=== PATIENT | female | born 1940 | race Caucasian/White ===

== ENCOUNTER 2016-10-24 12:17 | Day surgery (SDC) | payer MEDICARE, OTHER ==
[~2016-10-24] VITALS: Ht 154.9 cm; Wt 83.0 kg
[~2016-10-24 12:17] MED LIST: 0.9% Sodium Chloride 1,000 ML IV SCH; ACET325T51 PO; BUPR100T15 PO; CYAN1TAB42 SL; FLUT9.9S NS; GABA600T2 PO; LISI1TAB7 PO; MELO7.5O PO; PANT40TA2 PO; Sodium Chloride LOK Flush 10 mL Syringe IV PRN; fentaNYL-PF 50 mCg/mL 2 mL Inj IVPUSH PRN
[2016-10-24 12:48] VITALS: BP 130/76; PULSE 60; RESP 16; O2SAT 96
[2016-10-24 14:28] VITALS: BP 129/73; PULSE 64; RESP 16; O2SAT 96
[2016-10-24 14:38] VITALS: BP 107/52; PULSE 68; RESP 16; O2SAT 97
[2016-10-24 14:47] VITALS: BP 131/63; PULSE 77; RESP 16; O2SAT 91
--- NOTE | 2016-10-24 18:19 | ENDO ---
[address] [address] ENDOSCOPY PROCEDURE PATIENT: WINSOME LEWIS : 1940 MR#: [id number] ADMIT: 10/24/2016 JOB ID: [id number] PRIMARY PROVIDER: GLEN Hansen. PROCEDURE: Colonoscopy with cold forceps polypectomy. INDICATIONS: A 76-year-old female with a personal history of colon cancer. She recently had hemorrhoidal banding. EQUIPMENT: PCF H 180 AL. SEDATION: 4 mg Versed and 100 mcg fentanyl. COMPLICATIONS: None identified. BOWEL PREPARATION: Fair at best. Copious amounts of irrigation and suction were required for an acceptable examination. PROCEDURE IN DETAIL: After the risks and benefits were explained, written and verbal informed consent was obtained. The patient was brought into the endoscopy suite and placed into the left lateral decubitus position. Sedation was achieved as above. A digital rectal examination accomplished. No external hemorrhoids appreciated. Mild internal hemorrhoids could be palpated. No mass lesions appreciated. The scope was introduced into the rectum and advanced under direct visualization to the cecum as identified by the appendiceal orifice and ileocecal valve. The scope was slowly withdrawn to carefully examine the mucosa for any defects or lesions. Retroflexed views were obtained at the outset of our exam today and demonstrated some mucosal ulceration probably in the region of prior banding. Ultimately, the colon was decompressed, the scope removed from the patient who tolerated the procedure well. At the outset of today's procedure, Dr. Castillo was available and was present for inspection of the anorectum and both direct and retroflexed views at the beginning of the procedure. FINDINGS: Prep conditions as above. There were certainly some areas where small polyps could have been overlooked. In the left colon there was a small diminutive perhaps 3-4 mm polyp removed with cold forceps. The colorectal anastomosis appeared widely patent with some residual or retained suture material. No evidence of polypoid mucosa, no stenosis, no concerning features were noted. Retroflexed views as described above disclosed some inflammation approaching and crossing the dentate line. Multiple photographs were taken. ENDOSCOPIC DIAGNOSES: 1. Patent rectal coloanastomosis. 2. Colon polyp. 3. Persistent anorectal ulceration with mild internal hemorrhoids subsequent to more recent banding. RECOMMENDATIONS: 1. Await histopathology. 2. Based on what will likely be an adenoma, repeat colonoscopy in one year with an extra day of liquids and MiraLAX prior to the official prep. 3. The patient is encouraged to trial 0.3% nifedipine ointment applied to the inside of the anal canal in a pea-sized lump twice per day for the next four weeks. 4. Follow up on hemorrhoids and internal fissuring/ulceration with Dr. Castillo in the short term.
--- NOTE | 2016-10-26 11:43 | PATH ---
SURGICAL PATHOLOGY Attending Physician:Jaleel Kim CASE STATUS: Signed Out PATIENT NAME: WINSOME LEWIS PID: [id number] : 1940 DATE COLLECTED:10/24/2016 00:00 SPECIMEN: Colon, Biopsy CLINICAL HISTORY: A: LEFT COLON POLYP FINAL DIAGNOSIS: Left Colon Polyp: Tubular adenoma. ICD10: D12.4 GROSS DESCRIPTION: The specimen is received in one formalin filled container labeled with the patient's name, sublabeled "left colon polyp" and consists of a 0.3 x 0.3 x 0.2 CM portion of tissue which is entirely submitted in one cassette. 10/25/2016 [facility] ICD-9 CODES: CPT CODES: 1: 73826 Electronically Signed Out Addy Landa MD [facility] Pathology [facility] [address], [place] [address] Technical component performed at [facility], [facility] [address], [place], [address]
== END 2016-10-24 23:59 | disposition home or self-care (01) ==
LOC: END 12:17
PROVIDERS: ATTEND Internal Medicine Gastroenterology
DX: D12.4 Benign neoplasm of descending colon (principal); K63.89 Other specified diseases of intestine; K62.6 Ulcer of anus and rectum; Z86.010 Personal history of colon polyps; Z79.899 Other long term (current) drug therapy; Z87.891 Personal history of nicotine dependence
CPT/HCPCS: 45380; 88305; 99153; G0500; J2250; J7030

== ENCOUNTER 2017-01-31 13:07 | Emergency (ER) | payer MEDICARE, OTHER ==
[~2017-01-31] VITALS: Ht 154.9 cm; Wt 82.7 kg
[~2017-01-31 13:07] MED LIST changes: -0.9% Sodium Chloride 1,000 ML IV SCH; -ACET325T51 PO; -Sodium Chloride LOK Flush 10 mL Syringe IV PRN; -fentaNYL-PF 50 mCg/mL 2 mL Inj IVPUSH PRN
[2017-01-31 13:11] VITALS: BP 102/62; PULSE 65; RESP 18; O2SAT 98
[2017-01-31 14:43] LABS: BASOPHILS % (AUTO) 0.6 % (0-3); EOSINOPHILS % (AUTO) 0.4 % (0-5); MONOCYTES % (AUTO) 15.8 % (4-12); Mean Corpuscular Hemoglobin 23.8 pg (27.0-35.0); Mean Corpuscular Volume 77.3 fL (81-100); NEUTROPHILS % (AUTO) 57.2 % (40-74); Platelet Count 321 bil/L (150-400)
--- NOTE | 2017-01-31 14:51 | ED.REPORT ---
HPI-Extremity Problem Lower Date of Service January 31, 2017 ED Provider: Ofelia Szymanski MD This 76 year old female presents for lower extremities swelling. Patient has been seen by Dr. Cohn earlier today who sent her to [facility] Emergency Department. Patient reports gradual bilateral lower legs swelling that started 2 weeks ago. There is no reported injury or trauma. Associated symptoms include decreased mobility and tightness in legs. Pertinent negatives include difficulty initiating sleep and nocturnal awakening. Patient reports having an ultrasound done 2 days ago to rule out DVT in the right leg which was negative. Patient denies history of congestive heart failure. She tried to rest and elevate legs, but reports no relief. She denies chest pain, irregular heart palpitations, nausea, vomiting, diarrhea. She reports shortness of breath upon exertion. Patient also states she has been having altered bowel function for about 3 weeks now since she had a flu. She is having chronic diarrhea now and has about 12-15 loose, watery stool daily. Nursing Notes Stated Complaint: SHORTNESS OF BREATH, SWOLLEN LEGS Chief Complaint: Respiratory Complaints Allergies: Coded Allergies: Contrast Media (Verified Allergy, Severe, facial swelling and rash on body , 10/24/16) latex (Verified Allergy, Severe, RASH, 10/24/16) duloxetine (Verified Allergy, Unknown, "VIOLENTLY ILL", 10/24/16) amitriptyline (Verified Adverse Reaction, Severe, INCREASED AGITATION, ) amoxicillin (Verified Adverse Reaction, Severe, N&V, ANXIETY (PT HAS HAD PCN SINCE W/O PROBLEMS), 10/24/16) clavulanic acid (Verified Adverse Reaction, Severe, N&V, ANXIETY (PT HAS HAD PCN SINCE W/O PROBLEMS), 10/24/16) methocarbamol (Verified Adverse Reaction, Severe, AGITATION, INSOMNIA, ) Scheduled Bupropion (Bupropion) 100 Mg Tablet 200 MG PO BID Cyanocobalamin/Folic Acid (Vitamin T68-Cjlvt Acid Tablet) 1 Each Tablet 1 EACH SL DAILY Furosemide (Furosemide) 20 Mg Tab 20 MG PO DAILY Gabapentin (Gabapentin) 600 Mg Tablet 600 MG PO HS Lisinopril / HCTZ 10-12.5 mg (Lisinopril / HCTZ 10-12.5 mg) 1 Each Tablet 1 EACH PO DAILY Meloxicam (Meloxicam) 7.5 Mg/5 Ml Oral.susp 7.5 MG PO DAILY Pantoprazole DR (Protonix) 40 Mg Tablet.dr 40 MG PO BID Miscellaneous Medications Fluticasone Propionate (Flonase Allergy Relief) 50 Mcg/Actuation [place].susp 9.9 ML NS General Time Seen by MD: 13:38 Transferred From: Private physician office (Dr. Cohn) Chief Complaint Other (Bilateral lower extremity edema) Hx Obtained From: Patient Arrived By: Walk-in Onset Occurred: More than a week ago... (2 weeks) Quality: Fullness Severity: Current: Mild Past Medical History Past Medical History Notes: Gastroenteritis Chronic diarrhea secondary to colon cancer status post surgery 2 Hypertension Esophageal reflux Depression with anxiety Acoustic neuroma Past Surgical History Colon cancer surgery 2 Acoustic neuroma removal Smoking History Former Smoker Social History Alcohol Use: Denies alcohol use Drug Use: Denies drug use Ambulatory Status Independent Review of Systems Review of Systems Note: A comprehensive review of systems has been conducted with the patient and was found to be negative except what is mentioned in the history of present illness Physical Exam Initial Vital Signs Vital Signs (First) Date Time Temp Pulse Resp B/P Pulse Ox O2 Delivery O2 Flow Rate FiO2 01/31/17 13:11 36.8 65 18 102/62 98 Room Air Initial VS: Reviewed General/Constitutional: Well-developed, Well-nourished Head / Eyes: Atraumatic, Normocephalic ENT: Mucous membranes moist, Conjunctiva normal, No scleral icterus Neck: Supple, Non-tender, Full range of motion Abdomen / GI: Soft, Non-tender, No distention Skin: Warm, Dry, No cyanosis (well perfused) Neurologic: Alert, Oriented Psychiatric: Mood/affect normal Respiratory / Chest: Breath sounds NL, No respiratory distress, No rales, No rhonchi, No wheezing Cardiovascular: Regular rhythm Heart Sounds / Murmur: Positive: Systolic murmur present.. (II/) Lower Ext Edema: Positive: Bilateral 3+, Pitting Interpretation & Diagnostics Lab Results Interpretation Result Diagram: 01/31/17 1430 01/31/17 1430 Test 01/31/17 14:30 White Blood Count 8.0th/mm3 (3.8-10.1) Red Blood Count 4.45mil/mm3 (3.90-5.20) Hemoglobin 10.6g/dL (12.0-15.6) Hematocrit 34.4% (35.0-46.0) Mean Corpuscular Volume 77.3fL (81-100) Mean Corpuscular Hemoglobin 23.8pg (27.0-35.0) Mean Corpuscular Hemoglobin Concent 30.8% (32.0-37.0) Red Cell Distribution Width 22.6% (12.3-15.4) Platelet Count 321bil/L (150-400) Neutrophils (%) (Auto) 57.2% (40-74) Lymphocytes (%) (Auto) 25.6% (14-46) Monocytes (%) (Auto) 15.8% (4-12) Eosinophils (%) (Auto) 0.4% (0-5) Basophils (%) (Auto) 0.6% (0-3) Sodium Level 141mEq/L (134-144) Potassium Level 3.7mEq/L (3.5-5.2) Chloride Level 107mEq/L (97-108) Carbon Dioxide Level 20mmol/L (18-29) Blood Urea Nitrogen 16mg/dL (8-27) Creatinine 0.95mg/dL (0.57-1.00) Estimat Glomerular Filtration Rate 82mL/min (>59) Glucose Level 94mg/dL (60-99) Calcium Level 7.7mg/dL (8.5-10.1) Magnesium Level 1.9mg/dL (1.6-2.6) Total Bilirubin 0.5mg/dL (0.0-1.2) Aspartate Amino Transf (AST/SGOT) 15U/L (0-50) Alanine Aminotransferase (ALT/SGPT) 14U/L (0-32) Alkaline Phosphatase 120U/L (25-165) Total Creatine Kinase 147U/L (21-215) Creatine Kinase MB 3.3ng/mL (0.0-5.3) Creatine Kinase MB % % (0.0-5.0) Troponin T < 0.010ug/L (0.0-0.011) Pro-B-Type Natriuretic Peptide 404.6pg/mL (0-738) Total Protein 4.8g/dL (6.4-8.4) Albumin 2.8g/dL (3.4-5.0) Hold Palmer Top Tube Received (Received) ECG Interpretation ECG Interpretation: Sinus rhythm, rate 64 Interpreted by: ED physician X-Ray Chest Interpretation Chest Xray Interpretation: No acute cardiopulmonary process Interpretation / Wet Read by: Interpret - Radiologist (Lionel Rosenberg M.D. on 01/31/2017 at 14:19 ) Re-Eval/Medical Decision Med Decision/Clinical Course 76 year old female presents with worsening bilateral lower extremity edema and dyspnea on exertion. She also c/o chronic diarrhea for which she is seeing Dr. Bruce. Initially we had a concern for CHF and/or viral cardiomyopathy, however, chest x -ray is unremarkable and lab work is within normal limits. Troponin, CK-MB, Pro -BNP are normal as well. We will administer lasix, 20 mg IV to help remove the fluid overload. We will also order a plain abdominal film to rule out fecal impaction. Discharge & Departure Impression: Primary Impression: Lower extremity edema Additional Impression: Chronic diarrhea Disposition: Home Patient Status: Stable Additional Instructions: Thank you for coming in today! Good news is you do not have heart, kidney or liver failure. All your labs are normal. We are sending you home with an additional medication to help you to get rid of lower extremity edema. Please take Furosemide, 20 mg orally daily in the morning for one week. Call your PCP and make an appointment within a week as you will need to check your kidney function and potassium.Take an additional potassium tablet daily while you are on Furosemide. We do not see an obstruction on abdominal film but you do have lots of old stool. Please follow Dr. Bruce's instructions and start saline Fleet's enema and Metamucil or Citrucel fiber supplementation. It will help you to evacuate old, hardened stool and hopefully will improve your diarrhea. Referrals: Thao Ceballos (PCP) EDSupervising Provider for APC: Ofelia Szymanski MD Attending Statement Patient seen and examined with Dr. Sewell today. No evidence of end organ failure. Increased lower extremity edema is likely due to oncotic pressure is result of her low albumin. Flat plate of the abdomen does suggest that there is a stool obstruction with lots of liquid stool leaking around this which is probably exacerbating her diarrhea. Recommended following Dr. Bruce's initial instructions with an enema. Agree with assessment and plan as above copies to: Thao Ceballos; Addy Bruce MD, Oksana S DO January 31, 2017 14:51 Ofelia Szymanski MD January 31, 2017 18:32
[2017-01-31 15:03] LABS: Magnesium 1.9 mg/dL (1.6-2.6)
[2017-01-31 15:08] LABS: TROPONIN T < 0.010 ug/L (0.0-0.011)
[2017-01-31 15:15] LABS: Creatine Kinase 147 U/L (21-215)
--- NOTE | 2017-01-31 15:25 | DRSVH ---
PROCEDURE: X-RAY CHEST ONE VIEW, PORTABLE ([id number]) INDICATIONS: edema TECHNIQUE: One view of the chest was acquired. COMPARISON: [facility], , CHEST 2VW, 12/05/2011, 11:04. FINDINGS: Surgical changes and devices: None. Lungs and pleura: No pleural effusions or pneumothorax. Lungs are clear. Mediastinum: Mediastinal contours appear normal. Heart size is normal. The there is aortic atheros clerosis. Bones and chest wall: No suspicious bony lesions. Bone mineralization is decreased. Overlying soft tissues appear unremarkable. IMPRESSION: Stable chest. No acute cardiopulmonary process is evident. Dictated by: Lionel Rosenberg M.D. on 01/31/2017 at 14:19 Approved by: Lionel Rosenberg M.D. on 01/31/2017 at 14:23
[2017-01-31] MEDS ORDERED: Furosemide 10 mg/mL 4 mL Inj IVPUSH ONE (15:40)
[2017-01-31] MEDS ORDERED: Furosemide 10 mg/mL 2 mL Inj IVPUSH ONE (15:45)
[2017-01-31 17:11] VITALS: BP 107/56; PULSE 71; O2SAT 98
--- NOTE | 2017-01-31 17:33 | DRSVH ---
PROCEDURE: X-RAY ABDOMEN, ONE VIEW ([id number]) INDICATIONS: diarrhea TECHNIQUE: One view of the abdomen acquired. COMPARISON: [facility], CT, CT CHEST ABD PELVIS W CON, 02/22/2016, 13:27. FINDINGS: Surgical changes and devices: Multiple radiodense sutures are present in the GE junction area. Vascul ar clips are scattered throughout the abdomen and several in the right iliac fossa as well. No change in the vascular clips is appreciated since the CT of 02/22/16 no other radiodense sutures. Bowel: Bowel gas pattern is normal. Soft tissues: No suspicious abdominal calcifications. Visualized solid organ contours appear normal in size. Bones: No suspicious bony lesions. IMPRESSION: No changes to indicate obstruction. Previous surgery in the abdomen. Calcified uterine fibroids are noted. Dictated by: Silvio Do M.D. on 01/31/2017 at 17:29 Approved by: Silvio Do M.D. on 01/31/2017 at 17:31
[2017-01-31 17:47] VITALS: BP 111/54; PULSE 84; O2SAT 97
[2017-01-31] MEDS ORDERED: FUR20 PO (17:51)
[2017-01-31 18:01] VITALS: BP 111/54; PULSE 84; O2SAT 97
== END 2017-01-31 18:02 | disposition home or self-care (01) ==
LOC: SED 13:07
DX: R60.0 Localized edema (principal); K52.9 Noninfective gastroenteritis and colitis, unspecified; R06.02 Shortness of breath; I10 Essential (primary) hypertension; K21.9 Gastro-esophageal reflux disease without esophagitis; F32.9 Major depressive disorder, single episode, unspecified; Z87.891 Personal history of nicotine dependence; Z88.1 Allergy status to other antibiotic agents; Z88.8 Allergy status to other drugs, medicaments and biological substances; Z91.040 Latex allergy status; Z91.041 Radiographic dye allergy status
CPT/HCPCS: 36415; 71010; 74000; 80053; 82550; 82553; 83735; 83880; 84484; 85025; 93005; 96374; 99285; J1940

== ENCOUNTER 2017-02-04 16:55 | Emergency (ER) | payer MEDICARE, OTHER ==
[~2017-02-04] VITALS: Ht 154.9 cm; Wt 85.0 kg
[~2017-02-04 16:55] MED LIST changes: +FUR20 PO
[2017-02-04 17:12] VITALS: BP 95/54; PULSE 67; RESP 18; O2SAT 97
--- NOTE | 2017-02-04 19:55 | ED.REPORT ---
HPI-Extremity Problem Lower Date of Service February 04, 2017 ED Provider: Dr. Yair Clemens D.O. A 76 year old female with a medical history including hypertension and acoustic neuroma s/p surgical removal presents to the ED with bilateral leg swelling onset two weeks ago. The patient denies other symptoms. She was seen in the [place] emergency department one week ago and received a negative DVT work- up. She was also seen in the [facility] ED four days ago where she was placed on furosemide, which she has taken with no relief. Nursing Notes Stated Complaint: SWOLLEN LEGS Chief Complaint: Extremity Trauma Nursing Notes Reviewed: Yes Allergies: Coded Allergies: Contrast Media (Verified Allergy, Severe, facial swelling and rash on body , 02/04/17) latex (Verified Allergy, Severe, RASH, 02/04/17) duloxetine (Verified Allergy, Unknown, "VIOLENTLY ILL", 02/04/17) amitriptyline (Verified Adverse Reaction, Severe, INCREASED AGITATION, 02/04) amoxicillin (Verified Adverse Reaction, Severe, N&V, ANXIETY (PT HAS HAD PCN SINCE W/O PROBLEMS), 02/04/17) clavulanic acid (Verified Adverse Reaction, Severe, N&V, ANXIETY (PT HAS HAD PCN SINCE W/O PROBLEMS), 02/04/17) methocarbamol (Verified Adverse Reaction, Severe, AGITATION, INSOMNIA, 02/04) Scheduled Bupropion (Bupropion) 100 Mg Tablet 200 MG PO BID Cyanocobalamin/Folic Acid (Vitamin Y18-Gyyjm Acid Tablet) 1 Each Tablet 1 EACH SL DAILY Furosemide (Furosemide) 20 Mg Tab 20 MG PO DAILY Gabapentin (Gabapentin) 600 Mg Tablet 600 MG PO HS Lisinopril / HCTZ 10-12.5 mg (Lisinopril / HCTZ 10-12.5 mg) 1 Each Tablet 1 EACH PO DAILY Meloxicam (Meloxicam) 7.5 Mg/5 Ml Oral.susp 7.5 MG PO DAILY Pantoprazole DR (Protonix) 40 Mg Tablet.dr 40 MG PO BID Miscellaneous Medications Fluticasone Propionate (Flonase Allergy Relief) 50 Mcg/Actuation [place].susp 9.9 ML NS General Time Seen by MD: 19:55 Chief Complaint Other (Bilateral Extremity Swelling) Hx Obtained From: Patient Arrived By: Walk-in Onset Occurred: More than a week ago... (2 weeks) Symptom Duration: Since onset Location: : Thigh right Quality: Painful Severity: Current: Moderate Severity: Maximum: Moderate Pertinent Negative: Relieved by nothing Immunizations: Unknown Recent Healthcare: Recent doctor visit, Recent testing Past Medical History Past Medical History Gastroenteritis Chronic diarrhea secondary to colon cancer status post surgery 2 Hypertension Esophageal reflux Depression with anxiety Acoustic neuroma Past Surgical History Colon cancer surgery 2 Acoustic neuroma removal Smoking History Former Smoker Social History Alcohol Use: Denies alcohol use Drug Use: Denies drug use Ambulatory Status Independent Review of Systems Basic Review of Systems Eyes: Vision NL ENT: No pain Respiratory: No shortness of breath Cardiovascular: No chest pain, No dyspnea on exertion GI: No abdominal pain, No anorexia : No dysuria Hematologic: No bleeding Constitutional: Denies: Fever Musculoskeletal: Reports: Extremity swelling (Bilateral legs) Complete sys rev & neg: except as marked. Respiratory: Denies: Non-productive cough GI: Denies: Diarrhea, Vomiting Female: Reports: Urination decreased Physical Exam Initial Vital Signs Vital Signs (First) Date Time Temp Pulse Resp B/P Pulse Ox O2 Delivery O2 Flow Rate FiO2 02/04/17 17:12 36.1 67 18 95/54 97 Room Air Initial VS: Reviewed Head / Eyes: Atraumatic, Normocephalic ENT: Conjunctiva normal, No scleral icterus Neck: Supple, Full range of motion Skin: Warm, Dry, No cyanosis Neurologic: Alert, Oriented, Nonfocal Psychiatric: Mood/affect normal, Behavior normal, Normal thought content General/Constitutional: Awake, Alert, No acute distress Respiratory / Chest: Breath sounds NL, Breath sounds = bilat, No respiratory distress Cardiovascular: Heart rate NL, Regular rhythm, Heart sounds NL Lower Ext Edema: Positive: Pitting (Up to proximal thighs bilaterally) Interpretation & Diagnostics US DVT: IMPRESSION: No evidence of DVT, on bilateral lower extremity venous ultrasound. Transmitted to ED by radiologist Radha Allen M.D. at 02/04/2017 - 11:43:29 PM PDT Lab Results Interpretation Result Diagram: 02/04/17200202/04/172002 Test 02/04/17 20:03 White Blood Count 9.9th/mm3 (3.8-10.1) Red Blood Count 4.55mil/mm3 (3.90-5.20) Hemoglobin 11.1g/dL (12.0-15.6) Hematocrit 36.1% (35.0-46.0) Mean Corpuscular Volume 79.3fL (81-100) Mean Corpuscular Hemoglobin 24.4pg (27.0-35.0) Mean Corpuscular Hemoglobin Concent 30.7% (32.0-37.0) Red Cell Distribution Width 23.5% (12.3-15.4) Platelet Count 283bil/L (150-400) Neutrophils (%) (Auto) 65.5% (40-74) Lymphocytes (%) (Auto) 22.6% (14-46) Monocytes (%) (Auto) 10.6% (4-12) Eosinophils (%) (Auto) 0.7% (0-5) Basophils (%) (Auto) 0.3% (0-3) D-Dimer 2.15mg/L FEU (<0.50) Sodium Level 139mEq/L (134-144) Potassium Level 3.8mEq/L (3.5-5.2) Chloride Level 106mEq/L (97-108) Carbon Dioxide Level 22mmol/L (18-29) Blood Urea Nitrogen 17mg/dL (8-27) Creatinine 1.12mg/dL (0.57-1.00) Estimat Glomerular Filtration Rate 68mL/min (>59) Glucose Level 80mg/dL (60-99) Calcium Level 7.7mg/dL (8.5-10.1) Total Bilirubin 0.4mg/dL (0.0-1.2) Aspartate Amino Transf (AST/SGOT) 17U/L (0-50) Alanine Aminotransferase (ALT/SGPT) 19U/L (0-32) Alkaline Phosphatase 125U/L (25-165) Troponin T < 0.010ug/L (0.0-0.011) Pro-B-Type Natriuretic Peptide 427.8pg/mL (0-738) Total Protein 4.8g/dL (6.4-8.4) Albumin 2.6g/dL (3.4-5.0) Thyroid Stimulating Hormone (TSH) 4.450uIU/mL (0.450-4.500) Hold Palmer Top Tube Received (Received) X-Ray Chest Interpretation Chest Xray Interpretation: IMPRESSION: No acute pulmonary process. Dictated by: Nayely Solano M.D. on 02/04/2017 at 21:21 View: AP & lat Interpretation / Wet Read by: Interpret - Radiologist Re-Eval/Medical Decision Med Decision/Clinical Course Pitting edema without evidence of congestive heart failure or myxedema. She also has bounding pulses and no history of vascular disease that would make MATHEW hose contraindicated. I think that if she wears MATHEW hose and use the diuretic she will have a much better response. She is going to try this for the next few days and follow up closely with her primary care physician. Re-Evaluation/Progress #1: Time of Eval: 22:33 Patient Status: Condition improved Re-Evaluation/Progress Note: Discussed with patient plan for US. Re-Evaluation/Progress #2: Time of Eval: 23:20 Patient Status: Condition improved Re-Evaluation/Progress Note: Discussed with patient x-ray, US, and lab results, diagnosis, and plan for discharge. Follow-up and return to the ER instructions given. Patient agrees with plan for care and all questions were addressed. Counseled Regarding: Diagnosis, Lab results, Need for follow-up, When/why to return to ED Discharge & Departure Impression: Primary Impression: Lower extremity edema Laterality: bilateral Qualified Code: R60.0 - Localized edema Disposition: Home Discharge Condition All VS Reviewed: Yes Condition: Improved Additional Instructions: The ultrasound did not show a blood clot. Your laboratory work shows you to have good kidney function. No evidence of congestive heart failure. Your thyroid test is normal. I suspect that if you wear the MATHEW hose while you are up and about the swelling will go down in conjunction with a diuretic. I would like you to call your doctor tomorrow morning for follow-up. I would like your to return if any problems or any new or worsening symptoms. The hose should not cause any pain. If you develop any pain, discoloration or numbness or pallor to your feet, take them off and be seen right away. Referrals: Thao Ceballos (PCP) Scribe Attestation Portions of this note were transcribed by Daphne Sam. I, Dr. Clemens, personally performed the history, physical exam, and medical decision-making; I reviewed and confirmed the accuracy of the information in the transcribed note. Signed by: Robby Whalen, 02/05/2017, 00:35 copies to: Thao Ceballos Todd P DO February 04, 2017 19:55 DAPHNE SAM February 04, 2017 20:27
[2017-02-04 20:17] LABS: BASOPHILS % (AUTO) 0.3 % (0-3); EOSINOPHILS % (AUTO) 0.7 % (0-5); MONOCYTES % (AUTO) 10.6 % (4-12); Mean Corpuscular Hemoglobin 24.4 pg (27.0-35.0); Mean Corpuscular Volume 79.3 fL (81-100); NEUTROPHILS % (AUTO) 65.5 % (40-74); Platelet Count 283 bil/L (150-400)
[2017-02-04 20:50] LABS: TROPONIN T < 0.010 ug/L (0.0-0.011)
--- NOTE | 2017-02-04 21:23 | DRSVH ---
PROCEDURE: X-RAY CHEST, TWO VIEWS ([id number]) INDICATIONS: dyspnea TECHNIQUE: 2 views of the chest were acquired. COMPARISON: [facility], CR, CHEST 2VW, 12/05/2011, 11:04. [facility], CR, XR CHEST 1VW (PORTABLE), 01/31/2017, 14:44. FINDINGS: Surgical changes and devices: None. Lungs and pleura: No pleural effusions or pneumothorax. Lungs are clear. Mediastinum: Mediastinal contours are normal. Heart size is normal. Bones and chest wall: No suspicious bony abnormalities. Soft tissues appear unremarkable. IMPRESSION: No acute pulmonary process. Dictated by: Nayely Solano M.D. on 02/04/2017 at 21:21 Approved by: Nayely Solano M.D. on 02/04/2017 at 21:21
[2017-02-04 22:02] VITALS: BP 119/53; PULSE 75; RESP 20; O2SAT 95
[2017-02-04 23:52] VITALS: BP 120/66; PULSE 71; RESP 15; O2SAT 97
--- NOTE | 2017-02-06 11:55 | DRSVH ---
PROCEDURE: US VENOUS LEG DUPLEX BILATERAL INDICATIONS: bilateral edema, new, elevated ddimer TECHNIQUE: Real-time imaging, as well as color and pulse Doppler interrogation, were performed of the deep veins of both legs from the inguinal ligament to the popliteal fossa. COMPARISON: [facility], US, US THYROID, 02/22/2016, 11:32. FINDINGS: The deep veins are normally compressible, and free of intraluminal thrombus. Color and pu lse Doppler demonstrate normal phasic intravascular flow. There is normal augmentation response to d istal compression maneuver. IMPRESSION: No deep venous thrombus bilaterally. Dictated by: Lalo Espino M.D. on 02/05/2017 at 7:56 Approved by: Lalo Espino M.D. on 02/05/2017 at 7:56
== END 2017-02-04 23:53 | disposition home or self-care (01) ==
LOC: SED 16:55
DX: R60.0 Localized edema (principal); I10 Essential (primary) hypertension; Z87.891 Personal history of nicotine dependence; Z85.038 Personal history of other malignant neoplasm of large intestine; Z79.899 Other long term (current) drug therapy; Z88.1 Allergy status to other antibiotic agents; Z88.8 Allergy status to other drugs, medicaments and biological substances; Z91.040 Latex allergy status; Z91.041 Radiographic dye allergy status